=== PATIENT | female | born 1940 | race Caucasian/White ===

== ENCOUNTER 2019-07-09 10:08 | Outpatient (CLI) | payer MEDICARE ==
[~2019-07-09] VITALS: Ht 154.9 cm; Wt 56.8 kg
[2019-07-09 11:05] VITALS: BP 162/74; Ht 154.9 cm; Wt 56.8 kg
[2019-07-09 13:02] LABS: APPEARANCE CLEAR (CLEAR); BILIRUBIN NEGATIVE (NEGATIVE); COLOR YELLOW (YELLOW); GLUCOSE NEGATIVE (NEGATIVE); KETONE NEGATIVE (NEGATIVE); NITRITE NEGATIVE (NEGATIVE); PROTEIN NEGATIVE (NEGATIVE); UROBILINOGEN NORMAL (NORMAL)
== END 2019-07-09 11:30 | disposition home or self-care (01) ==
LOC: D.OPS 10:08
PROVIDERS: ATTEND Specialist
DX: N39.0 Urinary tract infection, site not specified (principal)

== ENCOUNTER 2019-07-20 10:13 | Outpatient (CLI) | payer MEDICARE ==
[~2019-07-20] VITALS: Ht 154.9 cm; Wt 56.8 kg
[2019-07-20] VITALS (9 sets, daily range): BP systolic 122–173; BP diastolic 60–87; Ht 154.9 cm; Wt 56.8 kg
--- NOTE | ~2019-07-20 | HEMODYNAMI ---
PATIENT:LEIA ROLAND MEDICAL RECORD: [id number] : 36 LOCATION:[facility] ADMISSION DATE: 07/20/19 Generatedon:07/20/201914:53 Patient name: ELIA ROLAND Patient #: [id number] SSN: : 1940 Date of study: 07/20/2019 Page: Of Hemodynamic Procedure Report Patient Data Patient Demographics Procedure consent was obtained First Name: ELIA Gender: Female Last Name: ASUNCION : 1940 Patient #: [id number] Age: 79 year(s) Race: Unknown Additional ID: [id number] Contact details Address: [address] [place] [address] [facility] State: [place] City: [place] Zip code: [address] Past Medical History Allergies: No known allergies Admission Admission Data Admission Date: 07/20/2019 Admission Time: 10:13 Height (in.): 61 BSA: 1.54 (m2) Height (cm.): 154.94 BMI: 23.43 (kg/m2) Weight (lbs.): 124 Weight (kg.): 56.25 Procedure Procedure Types Cath Procedure Peripheral Cath Diagnostic Procedure [employer] Peripheral Procedures Kyphoplasty Kyphoplasty Thoracic Procedure Description Procedure Date Procedure Date: 07/20/2019 Procedure Start Time: 14:09 Procedure Staff Name Function Franky Victor MD Performing Physician Coni Watkins RT Die Polisher Josseline Cortes RN Nurse Leena Carrion RN Nurse MONA LOW RT Scrub Horace Power CRNA Additional personnel Procedure Data Cath Procedure Fluoroscopy Diagnostic fluoroscopy Total fluoroscopy Time: 7.7 time: 7.7 min min Diagnostic fluoroscopy Total fluoroscopy dose: 124 dose: 124 mGy mGy Hemodynamics Rest BSA: 1.54 (m2) O2 Consumption: Estimated: 145.6 (ml/min) O2 Consumption indexed: Estimated:94.55 (ml/min/m) Heart Rate: 83 (bpm) Snapshots Pre Cath Intra NCS Post Cath Vital Signs Time Heart Resp SPO2 etCO2 NIBP (mmHg) Rhythm Pain Sedation Rate (ipm) (%) (mmHg) Status Level (bpm) 13:56:27 82 25 98 23.2 128/57(101) NSR 0 (11) 10(A) , No pain 14:00:34 81 20 99 27 137/72(105) NSR 0 (11) 10(A) , No pain 14:04:46 80 17 99 28.5 129/67(94) NSR 0 (11) 10(A) , No pain 14:08:56 78 13 98 35.3 117/61(89) NSR 0 (11) 10(A) , No pain 14:13:04 79 13 98 38.2 110/61(84) NSR 0 (11) 10(A) , No pain 14:17:08 77 13 98 26.2 117/60(82) NSR 0 (11) 10(A) , No pain 14:21:16 78 11 98 9.7 102/58(79) NSR 0 (11) 10(A) , No pain 14:25:18 80 11 97 0 103/56(80) NSR 0 (11) 10(A) , No pain 14:29:21 80 10 97 48.7 104/55(70) NSR 0 (11) 10(A) , No pain 14:33:27 82 11 97 49.5 101/49(77) NSR 0 (11) 10(A) , No pain 14:37:31 82 11 97 48.8 101/51(68) NSR 0 (11) 10(A) , No pain 14:41:32 81 11 97 46.5 101/55(71) NSR 0 (11) 10(A) , No pain 14:45:36 97 42 105/51(96) NSR 0 (11) 10(A) , No pain 14:49:36 0 No Cuff NSR 0 (11) 10(A) , No pain Procedure Log Time Note 13:20:51 Patient Height : 61 inches 13:21:00 Patient Weight : 124 lbs 13:28:07 Time tracking: Regular hours (M-F 7:00 - 5:00) 13:28:27 Plan of Care:Hemodynamics will remain stable., Cardiac rhythm will remain stable., Comfort level will be maintained., Respiratory function will remain adequate., Patient/ family verbilizes understanding of procedure., Procedure tolerated without complication., Recovers from procedure without complications.. 13:28:34 Patient received from Outpatients to IR Alert and oriented. Tansferred to table in Prone position. 13:28:38 Signed procedure consent form obtained from patient. 13:28:45 H&P Date Dictated: 07/20/2019 Within 30 days and on chart., H&P Addendum completed by physician on day of procedure. (MUST COMPLETE FOR ALL OUTPATIENTS). 13:28:49 Pre-procedure instructions explained to patient. 13:28:49 Pre-op teaching completed and patient verbalized understanding. 13:28:51 Family in waiting room. 13:28:53 Patient NPO since Midnight. 13:29:02 Patient allergic to No known allergies 13:29:10 - 13:29:15 Use device set IR Diagnostic 13:29:17 Tegaderm 4 x 4 (1626W) opened to sterile field. 13:29:17 Sterile Angiographic Pack opened to sterile field. 13:29:18 Bag Decanter () opened to sterile field. 13:38:18 ALEXEY 15/2 VERT AUGMENTATION opened to sterile field. 13:38:19 Alexey BONE CEMENT WITH NEEDLE AUTOPLEX Kit opened to sterile field. 13:38:20 Alexey BONE BX 11GA kit opened to sterile field. 13:55:17 ECG and BP/O2 sat monitors applied to patient. 13:55:17 Vital chart was started 13:55:18 Baseline sample Acquired. 13:55:21 Full Disclosure recording started 13:55:22 - 14:00:21 ----Pre-sedation anethsthesia assessment.----see anesthesia notes for monitoring of patient during procedure 14:08:08 Physician arrived 14:08:08 --------ALL STOP TIME OUT------ 14:08:09 Final Timeout: patient, procedure, and site verified with staff and physician. All members of the team are in agreement. 14:09:06 Procedure started. 14:09:14 Local anesthetic to Thoracic area with Lidocaine 1% by Franky Victor MD.INITIAL ACCESS ONLY 14:20:04 Jamshidi needle introduced. 14:25:46 Bone bx needle placed. 14:26:02 Kyphoplasty balloon introduced. 14:29:11 Cement introduced to vertebral body. 14:32:42 Jamshidi needle removed. 14:36:20 Procedure ended.(Physican Out) 14:36:34 Fluoroscopy time 07.70 minutes. 14:36:45 Fluoroscopy dose: 124 mGy 14:36:45 Flurop Dose total: 124 14:36:54 Procedure and supply charges have been captured, reviewed, submitted an d are correct. 14:37:18 - 14:53:49 Vital chart was stopped Device Usage Item Name Manufacture Quantity Catalog Hospital Part Current Minim al Lot# / Number Charge Number Stock Stock Serial# Code Tegaderm 4 x 3M 1 [id number] 5 4 (1626W) Sterile Cardinal 1 [id number] 5 Angiographic Health Pack Bag Decanter [employer]tek 1 [id number] [id number] 5 () [employer] ALEXEY 15/2 Alexey 1 [id number] 5 VERT AUGMENTATION Alexey BONE Comer 1 [id number] 5 CEMENT WITH NEEDLE AUTOPLEX Kit Alexey BONE Comer 1 [id number] 5 BX 11GA kit Signature Audit [place] Stage Time Signature Unsigned Intra-Procedure 07/20/2019 Coni Watkins 2:53:45 PM RT(R) [facility] [address] [place] [address]
[2019-07-20 10:55] LABS: BASOPHILS 0.7 % (0-2); EOSINOPHILS 1.7 % (0-7); HEMATOCRIT 43.2 % (36.0-48.0); HEMOGLOBIN 14.3 g/dL (12-16); IMMATURE GRANULOCYTES 0.4 % (0-5); LYMPHOCYTES 33.7 % (15-50); MCH 30.8 pg (26.0-34.0); MCHC 33.1 g/dL (31.0-37.0); MCV 92.9 fL (80.0-100.0); MEAN PLATELET VOLUME 8.6 fL (7.4-10.4); MONOCYTES 8.5 % (2-11); PLATELET COUNT 418 10x3/uL (130-400); RBC 4.65 10x6/uL (4.00-5.40); RDW 12.9 % (11.5-14.5); WBC 8.2 10x3/uL (4.8-10.8)
[2019-07-20 11:06] LABS: APTT 28.5 SECONDS (22.8-39.4); INR 1.26 (0.85-1.17); PROTIME 15.3 SECONDS (11.6-15.0)
[2019-07-20 11:11] LABS: CALCIUM 9.2 mg/dL (8.5-10.1); CARBON DIOXIDE 26.1 mmol/L (21.0-32.0); CREATININE - SERUM 0.8 mg/dL (0.6-1.3); POTASSIUM - SERUM 5.1 mmol/L (3.5-5.1)
[2019-07-20] MEDS ORDERED: NORVASC5 MG PO (11:38)
[2019-07-20] MEDS ORDERED: HYDROCODON-ACE1 EA10 PO (11:39)
--- NOTE | 2019-07-20 20:00 | NUR ---
ALERT RESTING IN BED, DENIES PAIN OR NEEDS AT THIS TIME SEE SHIFT ASSESSMENT, CALL LIGHT IN REACH
[2019-07-21] VITALS: BP 130/59
[2019-07-21 04:00] VITALS: BP 151/75
--- NOTE | 2019-07-21 07:20 | NUR ---
PT RESTING IN BED. AWAKE ALERT AND ORIENTED. NO ACUTE DISTRESS NOTED. PT REPORTS PAIN MINIMAL AT 2/10 AT THIS TIME. SALINE LOC TO LEFT FOREARM. SITE WITHOUT REDNESS OR EDEMA. DENIES FURTHER NEEDS AT THIS TIME. CL WITHIN REACH. ENCOURAGED TO CALL WITH NEEDS. CONTINUE POC
[2019-07-21 08:28] VITALS: BP 15/75
== END 2019-07-21 10:22 | disposition home or self-care (01) ==
LOC: D.SP 10:13 → D.MS 15:21 → D.SP 07-21 10:22
PROVIDERS: ATTEND Specialist
DX: S22.081A Stable burst fracture of T11-T12 vertebra, initial encounter for closed fracture (principal); W19.XXXA Unspecified fall, initial encounter